=== PATIENT | female | born 1965 | race American Indian/Alaskan Native ===

== ENCOUNTER 2016-08-10 10:42 | Emergency (ER) | payer MEDICAID ==
[2016-08-10 11:36] LABS: Basophils % (Auto) 0.7 % (0.0-1.8); Eosinophils % (Auto) 1.1 % (0.0-4.3); Hematocrit 43.7 % (30.3-42.9); Hemoglobin 14.7 gm/dl (10.1-14.3); Mean Corpuscular HGB Conc 34 % (30-34); Mean Corpuscular Hemoglobin 28 pg (28-32); Mean Corpuscular Volume 85 fl (79-97); Platelet Count 310 K/mm3 (140-440); Red Blood Count 5.18 M/mm3 (3.65-5.03); Red Cell Distribution Width 14.5 % (13.2-15.2)
[2016-08-10 11:50] LABS: Creatine Kinase MB 1.5 ng/mL (0.0-4.0)
[2016-08-10 11:51] LABS: Anion Gap 17 mmol/L; Blood Urea Nitrogen 6 mg/dL (7-17); Calcium 9.5 mg/dL (8.4-10.2); Carbon Dioxide 25 mmol/L (22-30); Chloride 103.4 mmol/L (98-107); Creatine Kinase 90 units/L (30-135); Glucose 101 mg/dL (65-100); Potassium 3.9 mmol/L (3.6-5.0); Sodium 141 mmol/L (137-145)
[2016-08-10 13:18] LABS: Bacteria,Urine 1+ /HPF (Negative); Bilirubin,Urine NEG (Negative); Blood,Urine NEG (Negative); Ketones,Urine NEG (Negative); Leukocyte Esterase,Urine NEG (Negative); Mucus,Urine FEW /HPF; Nitrite,Urine NEG (Negative); Protein,Urine <15 mg/dL mg/dL (Negative); Urobilinogen,Urine < 2.0 mg/dL (<2.0)
--- NOTE | 2016-08-10 18:23 | Emergency Department Report ---
Chief Complaint: Chest Pain Stated Complaint: CHEST PAIN/LEFT ARM TINGLING Time Seen by Provider: 08/10/16 18:19 - HPI History of Present Illness: PT c/o cp since yesterday. PT states she was at work when the pain started. The duration of the chest pain was over 12 hours and at this time, the pain has resolved. PT states that she is also having L arm pain. - ROS Review of Systems: + whipple -fever - cough - Exam Vital Signs: Vital Signs 08/10/16 10:58 Temperature 98.3 F Pulse Rate 73 Respiratory 20 Rate Blood Pressure 188/114 O2 Sat by Pulse 100 Oximetry Physical Exam: PT looks well, non toxic. PT in no acute distress lungs diminished peter, no wheezing MSE screening note: Focused history and physical exam performed. Due to findings the following was ordered: xr ED Medical Decision Making - Lab Data Result diagrams: 08/10/16 11:13 08/10/16 11:13 ED Disposition for MSE Condition: Stable Referrals: PRIMARY CAREMD [Primary Care Provider] - 3-5 Days
[2016-08-10] MEDS ORDERED: BABY ASPIRIN PO ONE (20:42)
[2016-08-10] MEDS ORDERED: APRESOLINE IV ONE (20:42)
--- NOTE | 2016-08-10 20:45 | Emergency Department Report ---
ED Chest Pain HPI - General Chief Complaint: Chest Pain Stated Complaint: CHEST PAIN/LEFT ARM TINGLING Time Seen by Provider: 08/10/16 18:19 Source: patient Mode of arrival: Ambulatory Limitations: No Limitations - History of Present Illness Initial Comments: This is a 51-year-old -[place] female presents to the emergency department with a complaint of left-sided chest pain, right over her left breast , that is radiating down the left arm. Currently the patient says that the chest pain is gone but there is still some pain in the arm. She also complains of uncontrolled blood pressure and a headache. The patient used to be on hydrochlorothiazide but has been out of the medication for over a month since she lost her insurance. The headache is generalized and is not associated with any shortness of breath, slurred speech or any neurological deficits. The patient has not taken anything for symptoms prior to presentation. She does not currently have a primary care doctor. No recent travel or sick contacts at home. She is a tobacco smoker. She denies any illicit drug use. She does admit to heavy caffeine use. Severity scale (0 -10): 7 - Related Data Previous Rx's Medication Instructions Recorded Last Taken Type amLODIPine [Norvasc] 5 mg PO DAILY #30 tab 08/10/16 Unknown Rx Allergies Allergy/AdvReac Type Severity Reaction Status Date / Time No Known Allergies Allergy Unverified 08/10/16 11:06 BLAIRE score - Blaire Score Age > 65: (0) No Aspirin use within the Past 7 Days: (0) No 3 or more CAD Risk Factors: (1) Yes 2 or more Angina events in past 24 hrs: (1) Yes Known CAD with more than 50% Stenosis: (0) No Elevated Cardiac Markers: (0) No ST Deviation Greater than 0.5mm: (0) No BLAIRE Score: 2 ED Review of Systems ROS: Stated complaint: CHEST PAIN/LEFT ARM TINGLING Other details as noted in HPI Comment: All other systems reviewed and negative Constitutional: denies: chills, fever Eyes: denies: eye pain, eye discharge, vision change ENT: denies: ear pain, throat pain Respiratory: denies: cough, wheezing Cardiovascular: chest pain. denies: palpitations, edema Gastrointestinal: denies: abdominal pain, nausea, diarrhea Genitourinary: denies: urgency, dysuria, discharge Musculoskeletal: denies: back pain, joint swelling Skin: denies: rash, lesions Neurological: denies: headache, weakness, paresthesias ED Past Medical Hx - Past Medical History Hx Hypertension: Yes - Surgical History Past Surgical History?: No - Social History Smoking Status: Current Every Day Smoker Substance Use Type: Alcohol - Medications Home Medications: Home Medications Medication Instructions Recorded Confirmed Last Taken Type amLODIPine [Norvasc] 5 mg PO DAILY #30 tab 08/10/16 Unknown Rx ED Physical Exam - General Limitations: No Limitations - Other Other exam information: GENERAL: The patient is well-developed well-nourished. HEENT: Normocephalic. Atraumatic. Extraocular motions are intact. Patient has moist mucous membranes. Pupils equal reactive to light bilaterally. NECK: Supple. Trachea is midline. CHEST/LUNGS: Clear to auscultation. There is no respiratory distress noted. HEART/CARDIOVASCULAR: Regular. There is no tachycardia. There is no gallop rub or murmur. ABDOMEN: Abdomen is soft, nontender. Patient has normal bowel sounds. There is no abdominal distention. SKIN: There is no rash. There is no edema. There is no diaphoresis. NEURO: The patient is awake, alert, and oriented. The patient is cooperative. The patient has no focal neurologic deficits. The patient has normal speech. Cranial nerves II through XII grossly intact. MUSCULOSKELETAL: There is no tenderness or deformity. There is no limitation range of motion. There is no evidence of acute injury. ED Course Vital Signs 08/10/16 08/10/16 08/10/16 10:58 19:44 19:46 Temperature 98.3 F Pulse Rate 73 72 76 Respiratory 20 12 20 Rate Blood Pressure 188/114 Blood Pressure [Left] O2 Sat by Pulse 100 100 Oximetry 08/10/16 08/10/16 08/10/16 20:00 20:01 20:16 Temperature Pulse Rate 73 76 68 Respiratory 17 14 15 Rate Blood Pressure 189/110 216/94 Blood Pressure 224/108 [Left] O2 Sat by Pulse 100 100 100 Oximetry 08/10/16 08/10/16 08/10/16 20:30 20:46 20:55 Temperature Pulse Rate 69 71 84 Respiratory 11 L 10 L Rate Blood Pressure 213/82 230/108 230/108 Blood Pressure [Left] O2 Sat by Pulse 100 100 Oximetry 08/10/16 08/10/16 08/10/16 21:00 21:15 21:32 Temperature Pulse Rate 86 87 86 Respiratory 16 13 12 Rate Blood Pressure 230/108 169/88 230/108 Blood Pressure [Left] O2 Sat by Pulse 100 100 100 Oximetry 08/10/16 21:45 Temperature Pulse Rate 87 Respiratory 12 Rate Blood Pressure 175/86 Blood Pressure [Left] O2 Sat by Pulse 100 Oximetry ED Medical Decision Making - Lab Data Result diagrams: 08/10/16 11:13 08/10/16 11:13 - EKG Data -: EKG Interpreted by Me EKG shows normal: sinus rhythm, axis, intervals, QRS complexes, ST-T waves Rate: normal - EKG Data When compared to previous EKG there are: previous EKG unavailable Interpretation: normal EKG - Radiology Data Radiology results: image reviewed interpreted by me: Chest x-ray did not show any acute process. Heart is normal shape and size. No effusions. No pneumothorax. No signs of pneumonia seen. - Medical Decision Making 51 year old female presents to the emergency department with complaint of some left-sided chest pain with radiation down the left arm. Since I seen the patient the chest pain has resolved the patient continues to have pain down the left side of the arm. There is no gross abnormalities seen on physical exam. Patient has had negative troponins 2. She does not have any significant short of breath and appears low suspicion for a pulmonary embolism. She is negative on the pulmonary embolism rule out criteria and low on the well's criteria. However the patient does have a significant hypertensive history and she has not been on any medications for the past month and she presents with hypertensive urgency. This may be due the fact the patient is a smoker and has been using a lot of caffeinated products. My intent was to make sure that the patient was cleared for coronary artery disease by admitted to the hospital for at least a cardiac evaluation if not a stress test. However the patient seems very convinced that there is no way that she is having any type of coronary artery disease and refuses admission at this time. She says that she has good follow-up with primary care and cardiology, however I'm skeptical as the patient has not been taking her medication because she says that her insurance ran out. Nonetheless, despite the risks of leaving the hospital without further evaluation, the patient is decided that she is going to leave AGAINST MEDICAL ADVICE. Despite signing out against AMA, in good marco, hives given the patient a month's supply of blood pressure medication and the patient understands that she can return at any point if she changes her mind or if she has any acute distress. - Differential Diagnosis MA, PE, CHF, Pneumonia, Arthralgia Critical Care Time: No Critical care attestation.: If time is entered above; I have spent that time in minutes in the direct care of this critically ill patient, excluding procedure time. ED Disposition Clinical Impression: Hypertensive urgency, Noncompliance with medication regimen, Tobacco abuse Chest pain Qualifiers: Chest pain type: unspecified Qualified Code(s): R07.9 - Chest pain, unspecified Disposition: LEFT AGAINST MEDICAL ADVICE Is pt being admited?: No Condition: Stable Instructions: Chest Pain (ED), Hypertension (ED) Additional Instructions: Please return to the emergency department immediately if you change your mind about further evaluation and admission, or if you have any worsening of your symptoms or any acute distress. 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 Please try and quit smoking. Try to stay away from foods that are high in salt and caffeinated products to help with her blood pressure. I have started to on a blood pressure medication called Norvasc that is to be taken once a day. Please take this compliantly. Stop if there are any side effects. Keep a blood pressure log. Prescriptions: amLODIPine [Norvasc] 5 mg PO DAILY #30 tab Referrals: PRIMARY CARE, [Primary Care Provider] - 3-5 Days Forms: AMA Form Time of Disposition: 22:14
[2016-08-10] MEDS ORDERED: MORPHINE IV ONE (22:05)
[2016-08-10 22:46] VITALS: BP 170/81
--- NOTE | 2016-08-11 09:53 | XRay Report ---
Chest 2 views: History: Chest pain. Findings: Normal cardiomediastinal silhouette. Trachea is midline. No consolidation, pneumothorax or pleural effusion. Impression: No acute cardiopulmonary findings.
== END 2016-08-10 22:47 | disposition left against medical advice (07) ==
LOC: ED 10:42
DX: I10 Essential (primary) hypertension (principal); R07.9 Chest pain, unspecified; Z91.14 Patient's other noncompliance with medication regimen; F17.200 Nicotine dependence, unspecified, uncomplicated
CPT/HCPCS: 36415; 71020; 80048; 81001; 82550; 82553; 83880; 84484; 85025; 93005; 93010; 96374; 96375; 99284; J0360; J2270